=== PATIENT | female | born 1990 | race Caucasian/White ===

== ENCOUNTER → 2017-09-23 | Outpatient (CLI) | payer OTHER ==
[~2017-09-23] MED LIST: DIAZ2TAB2 PO; HYDR-2856 PO; MINO50CA2 PO; SERT100T8 PO; SPIR50TA27 PO
--- NOTE | 2017-09-23 20:13 | Diagnostic Imaging Report ---
INDICATION: Palpable fullness in the upper outer aspect of the left breast. This study is performed for further evaluation. EXAMINATION: Left breast ultrasound. FINDINGS: Sonographic interrogation of the area of fullness in the left breast was performed. This corresponds to the 2 o'clock location. No solid or cystic mass is detected. IMPRESSION: No sonographic abnormalities are identified. Continued close clinical and self breast exam is recommended to confirm stability of the palpable abnormality. ACR BI-RADS Category 1: Negative. Result letter will be mailed to the patient. Note: At least 10% of breast cancer is not imaged by mammography. Dictated by: Dictated on workstation # [id number]
== END ==
LOC: RAD 12:48
PROVIDERS: ATTEND Family Medicine
DX: N63.20 Unspecified lump in the left breast, unspecified quadrant (principal)
CPT/HCPCS: 76641